=== PATIENT | male | born 1965 | race African-American/Black ===

== ENCOUNTER 2019-09-18 09:27 | Inpatient (IN) | payer BC ==
[~2019-09-18] VITALS: Ht 170.2 cm; Wt 81.6 kg
[2019-09-18 09:29] VITALS: BP 123/90
[2019-09-18] MEDS ORDERED: LOSARTAN POTAS100 MG PO (09:50)
[2019-09-18 10:52] LABS: ABSOLUTE NEUTROPHILS 5.8 thou/uL (1.4-8.2); BASOPHILS 0.2 % (0.0-2.0); EOSINOPHILS 0.1 % (0.0-3.0); HEMATOCRIT 38.6 % (42.0-52.0); HEMOGLOBIN 13.5 gm/dL (14.0-18.0); LYMPHOCYTES 8.5 % (24.0-44.0); MCH 30.2 pg (26.0-34.0); MCHC 34.8 g/dL (28.0-37.0); MCV 86.7 fL (80.0-100.0); MONOCYTES 10.1 % (1.0-8.0); PLATELET COUNT 365 thou/uL (150-400); POLYS 81.1 % (36.0-66.0); RBC 4.45 mil/uL (4.50-6.00); RDW 13.1 % (10.5-14.5); WBC 7.2 thou/uL (4.0-11.0)
[2019-09-18 11:05] LABS: URINE BILIRUBIN NEGATIVE (Negative); URINE BLOOD NEGATIVE (Negative); URINE CLARITY CLEAR; URINE COLOR YELLOW; URINE GLUCOSE-RANDOM* NEGATIVE (Negative); URINE KETONES NEGATIVE (Negative); URINE LEUKOCYTES-REFLEX NEGATIVE (Negative); URINE NITRITE-REFLEX NEGATIVE (Negative); URINE PROTEIN (DIPSTICK) 2+ (Negative); URINE SPECIFIC GRAVITY 1.015 (1.005-1.035); URINE UROBILINOGEN >= 8.0 E.U./dl (0.2-1.0)
[2019-09-18 11:12] LABS: ALBUMIN 3.4 g/dL (3.4-5.0); ANION GAP 9 mmol/L (7-16); BUN 18 mg/dL (7-18); CHLORIDE 102 mmol/L (98-107); CO2 27 mmol/L (21-32); CREATININE 1.2 mg/dL (0.7-1.3); GLUCOSE 132 mg/dL (74-106); MAGNESIUM 2.1 mg/dL (1.8-2.4); SGOT 42 U/L (15-37); SGPT 58 U/L (30-65); SODIUM 138 mmol/L (136-145); TOTAL BILIRUBIN 1.2 mg/dL (0.2-1.0); TOTAL PROTEIN 8.1 g/dL (6.4-8.2); TROPONIN-I <0.06 ng/mL (<0.06)
[2019-09-18 11:15] LABS: CALCIUM 12.3 mg/dL (8.5-10.1)
[2019-09-18 12:19] LABS: CASTS None Seen /LPF (None Seen); SQUAMOUS 0-3 Few /LPF (0-3); URINE RBC None Seen /HPF (0-2); URINE WBC-REFLEX 0-5 Rare /HPF (0-5)
[2019-09-18 12:20] LABS: BACTERIA-REFLEX None Seen /HPF (None Seen); CRYSTALS None Seen /LPF (None Seen)
--- NOTE | 2019-09-18 16:22 | EKG ---
[facility] [place] [address] ELECTROCARDIOGRAM REPORT Name: YUMIKO LYNN Room #: 170-15 ADM IN M.R.#: [id number] Admission: 09/18/19 Attend Phys: Betito Webb MD Discharge: Date of : 67 Report #: [id number] THIS REPORT FOR: cc: FAM - Family physician unknown FAM - Family physician unknown Terrell Delvalle MD [facility] THIS REPORT FOR: //name// [facility] ED Test Date: 2019-09-18 Test Time: 09:59:05 Pat Name: YUMIKO LYNN Department: Room: 170 Gender: M Acid Remover: CASSIE : 1965 Requested By: Gigi Lewis Order Number: [id number] MD: Terrell Delvalle Measurements Intervals [place] Rate: 112 P: 62 [place]: 162 QRS: 71 QRSD: 85 T: 20 QT: 315 QTc: 430 Interpretive Statements Sinus tachycardia ST elev, probable normal early repol pattern No previous ECG available for comparison Electronically Signed On 09-18-2019 16:21:50 CDT by Terrell Delvalle [email or web address] <ELECTRONICALLY SIGNED> By: Terrell Delvalle MD, FAC 09/18/19 1621 [id number] Terrell Delvalle MD, [facility] /EPI
[2019-09-18 16:36] LABS: CALCIUM 11.4 mg/dL (8.5-10.1); CREATININE 1.3 mg/dL (0.7-1.3); PHOSPHORUS 3.1 mg/dL (2.5-4.9)
[2019-09-18 18:45] VITALS: BP 117/84
[2019-09-18 18:47] VITALS: BP 127/88
--- NOTE | 2019-09-18 18:53 | NUR ---
ATTEMPTED TO CALL REPORT AND DAY SHIFT NURSE TOLD ME THAT SHE WONT BE TAKING REPORT ON PT SINCE AMBULANCE DRIVER NURSE WILL BE TAKING CARE OF HIM, AND THEY WILL "CALL ME BACK"
[2019-09-19 01:00] VITALS: BP 139/90
[2019-09-19 04:40] VITALS: BP 125/82
--- NOTE | 2019-09-19 05:01 | NUR ---
RECIEVED PT FROM ED UPON ARRIVAL TO [facility] PT DENIES CHEST PAIN OR SOA , DATA BASE AND ASSESSMENT COMPLETED, SWIM COACH PLACED ON PT SHOWS NSR. IV FLUIDS STARTED ORDERD. PT RESTED WELL THROUGHOUT HOURLY ROUNDS.
[2019-09-19 06:49] LABS: HEMATOCRIT 34.7 % (42.0-52.0); HEMOGLOBIN 11.7 gm/dL (14.0-18.0); MCH 29.6 pg (26.0-34.0); MCHC 33.6 g/dL (28.0-37.0); MCV 88.1 fL (80.0-100.0); RBC 3.94 mil/uL (4.50-6.00); RDW 12.9 % (10.5-14.5); WBC 5.2 thou/uL (4.0-11.0)
[2019-09-19 07:22] LABS: CALCIUM 10.8 mg/dL (8.5-10.1); CREATININE 1.1 mg/dL (0.7-1.3); POTASSIUM 4.9 mmol/L (3.5-5.1)
[2019-09-19 07:50] VITALS: BP 114/82
[2019-09-19 11:39] VITALS: BP 155/95
[2019-09-19 15:32] VITALS: BP 140/92
--- NOTE | 2019-09-19 17:20 | NUR ---
ASSUMED PATIENT CARE AT 0700. A/O X4. DENIES CHEST PAIN. PROGRESSING TOWARDS POC GOALS.
[2019-09-19 20:37] VITALS: BP 137/83
--- NOTE | 2019-09-20 01:05 | NUR ---
PT AMBULATING TO BATHROOM INDEPENDENTLY AND IS TOLERATING WELL. DENIES PAIN. RESTING COMFORTABLY. NO NEEDS VOICED. CALL LIGHT WITHIN REACH. FREQUENT OBSERVATION.
[2019-09-20 06:22] VITALS: BP 145/96
[2019-09-20 06:34] LABS: CALCIUM 10.6 mg/dL (8.5-10.1); CREATININE 0.9 mg/dL (0.7-1.3); POTASSIUM 3.9 mmol/L (3.5-5.1)
[2019-09-20 08:00] VITALS: BP 145/92
[2019-09-20 11:34] VITALS: BP 160/99
[2019-09-20 15:49] VITALS: BP 157/89
--- NOTE | 2019-09-20 16:59 | NUR ---
PT REMAINS LARGELY ASYMPTOMATIC HAVING TESTED POSITIVE FOR COVID. START NEW IV MEDICATION TO HELP REGULATE SERUM CALCIUM. PT TAKING IN GOOD PO. WILL CONTINUE TO ASSESS.
[2019-09-20 19:25] VITALS: BP 150/92
--- NOTE | 2019-09-21 00:52 | NUR ---
ASSESSED AT START OF SHIFT 1900. PT A&OX4 IV INTACT AND FLUIDS INFUSING. UP AD LEX TO THE BATHROOM. DENIES PAIN. COUGH SYRUP GIVEN TONIGHT. PT ANTICIPATING DC TOMORROW. CALCIUM ELEVATED MONITORING LAB VALUES. SR ON TELE WILL CONT TO MONITOR.
[2019-09-21 02:22] VITALS: BP 136/93
[2019-09-21 04:36] VITALS: BP 128/90
[2019-09-21 06:43] LABS: CALCIUM 10.2 mg/dL (8.5-10.1); CREATININE 1.1 mg/dL (0.7-1.3); POTASSIUM 4.6 mmol/L (3.5-5.1)
[2019-09-21 08:51] VITALS: BP 147/89
--- NOTE | 2019-09-21 10:49 | NUR ---
INITIAL ASSESSMENT/DISCHARGE NOTE: JUAN JOSE reviewed chart and spoke with nursing and attending physician. Pt was admitted from home due to chest pain and recent exposure to COVID-19. Pt placed in Enhanced Isolation. Pt's test on 09/17 is positive. Pt was diagnosed with COVID-19 about ten days prior to admission to [facility], at [facility]. Pt's mother also has COVID-19. Pt is afebrile, not requiring O2 and not in IV abx. Pt is medically stable to discharge home today following surgeon evaluation. JUAN JOSE spoke with pt via phone. Introduced role of SW. Pt appears to be alert/orientated x 4. Pt reports he lives at home with family. Prior to admission pt was independent with ADLs. No use of DME. Pt states he drove himself to the hospital and will drive home when discharged. JUAN JOSE updated pt's nurse. No SW needs identified at this time, but is available to assist should needs arise.
[2019-09-21] MEDS ORDERED: PROTONIX40 M1 PO (11:00)
[2019-09-21 11:32] VITALS: BP 147/89
--- NOTE | 2019-09-21 11:42 | NUR ---
ASSSUMED PATIENT CARE THIS SHIFT. PATIENT AWAKE ALERT ORIENTED, NO COMPLAINTS OF PAIN THIS MORNING. DENIES ANY CHEST PAIN. VSS. PATIENT SEEN BY HOSPITALIST AND NEW SURGERY CONSULT THIS AM. ORDERS FOR US OF THYROID/ NECK RECIEVED AND CALLED ULTRASOUND TO SEE IF IT CAN BE DONE WHILE INPATIENT WHEN PATIENT IS COVID POSITIVE. PATIENT AWAITING DISCHARGE. IV SALINE LOCK REMOVED AND SPRAY GUN SIZER REMOVED AND RETURNED TO STATION. PATIENT BELONGINGS TAKEN WITH HIM AT DISCHARGE, PATIENT DRIVING HOME IN PERSONAL VEHICLE. NO DISTRESS NOTED AT TIME OF DC.
--- NOTE | 2019-09-21 12:32 | NUR ---
US CALLED STATES UNABLE TO DO NECK US WHILE INPATIENT, MADE PATIENT AWARE AND SURGERY AWARE. WILL NEED TO BE COMPLETED AN OUTPATIENT
== END 2019-09-21 13:59 | disposition home or self-care (01) | DRG 177 ==
LOC: ER 09:27 → EROBS 12:20 → 3W 12:20
PROVIDERS: Emergency Medicine; ADMIT Hospitalist; ATTEND Hospitalist
DX: U07.1 COVID-19 (principal); A41.89 Other specified sepsis; E83.52 Hypercalcemia; I10 Essential (primary) hypertension; R07.9 Chest pain, unspecified; Z79.899 Other long term (current) drug therapy
CPT/HCPCS: 10879

== ENCOUNTER → 2019-10-14 | Outpatient (CLI) | payer BC ==
[~2019-10-14] MED LIST: LOSARTAN POTAS100 MG PO; PROTONIX40 M1 PO
== END ==
LOC: ULTRA 08:08
PROVIDERS: ATTEND Surgery
DX: E04.1 Nontoxic single thyroid nodule (principal); E21.0 Primary hyperparathyroidism

== ENCOUNTER → 2019-11-24 | Outpatient (CLI) | payer BC | LOC: NUC 07:23 | PROVIDERS: ATTEND Surgery | DX: E21.0 Primary hyperparathyroidism (principal) ==

== ENCOUNTER → 2020-03-07 | Outpatient (CLI) | payer BC | LOC: LAB 07:19 | PROVIDERS: ATTEND Surgery | DX: Z01.812 Encounter for preprocedural laboratory examination (principal); Z20.822 Contact with and (suspected) exposure to COVID-19 ==

== ENCOUNTER 2020-03-09 06:09 | Day surgery (SDC) | payer BC ==
[~2020-03-09] VITALS: Ht 170.2 cm; Wt 86.6 kg
[2020-03-09 07:10] VITALS: BP 177/113
[2020-03-09 07:10] LABS: HEMATOCRIT 40.1 % (42.0-52.0); HEMOGLOBIN 13.6 gm/dL (14.0-18.0); MCH 29.6 pg (26.0-34.0); MCHC 33.9 g/dL (28.0-37.0); MCV 87.3 fL (80.0-100.0); RBC 4.59 mil/uL (4.50-6.00); RDW 14.3 % (10.5-14.5); WBC 3.5 thou/uL (4.0-11.0)
[2020-03-09 07:13] LABS: CALCIUM 11.3 mg/dL (8.5-10.1); CREATININE 1.2 mg/dL (0.7-1.3); POTASSIUM 3.8 mmol/L (3.5-5.1)
[2020-03-09 17:00] VITALS: BP 155/99
--- NOTE | 2020-03-09 18:14 | NUR ---
ASSUMED PT CARE UPON TRANSFER AT 1700. PT IN BED RESTING WELL. LOW FALL RISK. SCD'S ARE ON. MEDICATED FOR PAIN FROM SURGICAL SITE. EDUCATED ON CALLING WHEN NEEDED. AGREES TO CALL.
[2020-03-09 19:53] VITALS: BP 162/105
[2020-03-10 02:15] LABS: ALBUMIN 3.7 g/dL (3.4-5.0); CALCIUM 10.4 mg/dL (8.5-10.1); CREATININE 1.3 mg/dL (0.7-1.3); MAGNESIUM 1.8 mg/dL (1.8-2.4); POTASSIUM 4.1 mmol/L (3.5-5.1)
--- NOTE | 2020-03-10 04:02 | NUR ---
VSS-AFEBRILE. NECK DRESSING DRY AND INTACT. PAIN WELL CONTROLLED WITH PO TYLENOL AND IBUPROFEN. OOB AD LEX-STEADY ON FEET. CALLS APPROPRIATELY FOR ANY NEEDED ASSISTANCE.
[2020-03-10] MEDS ORDERED: IBUPROFEN 200200 M1 PO (10:59)
[2020-03-10] MEDS ORDERED: OXYCODONE HCL 55 MG PO (10:59)
[2020-03-10] MEDS ORDERED: CALTRATE-600 W1 EACH PO (11:00)
[2020-03-10] MEDS ORDERED: ACETAMINOPHEN325 M1 PO (11:00)
[2020-03-10] MEDS ORDERED: COLACE 100 MG100 MG PO (11:00)
[2020-03-10] MEDS ORDERED: MIRALAX17 GM PO (11:01)
[2020-03-10 12:19] VITALS: BP 162/105
[2020-03-10 14:25] VITALS: BP 162/105
--- NOTE | 2020-03-10 14:26 | NUR ---
PATIENT LEFT UNIT AT APPROX 1426 WITH GIRLFRIEND IN CAR. NO NEEDS VOICED
== END 2020-03-10 14:45 | disposition home or self-care (01) ==
LOC: OR 06:09 → TBA 06:11 → OR 08:38 → 4W 16:47 → OR 03-10 14:45
PROVIDERS: ATTEND Surgery
DX: E21.3 Hyperparathyroidism, unspecified (principal); I10 Essential (primary) hypertension; Z98.890 Other specified postprocedural states; Z79.899 Other long term (current) drug therapy
CPT/HCPCS: 50010; 50101; 50386; 50417; 52190; 56524; 56526; 56760; 62110; 62900; 65020; 65040; 70005

== ENCOUNTER 2020-05-17 10:51 | Emergency (ER) | payer BC ==
[~2020-05-17] VITALS: Ht 170.2 cm; Wt 84.4 kg
[~2020-05-17 10:51] MED LIST changes: +ACETAMINOPHEN325 M1 PO; +CALTRATE-600 W1 EACH PO; +COLACE 100 MG100 MG PO; +IBUPROFEN 200200 M1 PO; +MIRALAX17 GM PO; +OXYCODONE HCL 55 MG PO
[2020-05-17 11:28] LABS: ABSOLUTE NEUTROPHILS 2.7 thou/uL (1.4-8.2); BASOPHILS 0.9 % (0.0-2.0); EOSINOPHILS 0.7 % (0.0-3.0); HEMATOCRIT 42.7 % (42.0-52.0); HEMOGLOBIN 14.4 gm/dL (14.0-18.0); LYMPHOCYTES 24.4 % (24.0-44.0); MCH 29.3 pg (26.0-34.0); MCHC 33.6 g/dL (28.0-37.0); MCV 87.1 fL (80.0-100.0); MONOCYTES 7.6 % (1.0-8.0); PLATELET COUNT 248 thou/uL (150-400); POLYS 66.4 % (36.0-66.0); RBC 4.91 mil/uL (4.50-6.00); RDW 13.4 % (10.5-14.5); WBC 4.1 thou/uL (4.0-11.0)
[2020-05-17 11:38] LABS: ANION GAP 10 mmol/L (7-16); BUN 12 mg/dL (7-18); CALCIUM 9.2 mg/dL (8.5-10.1); CHLORIDE 104 mmol/L (98-107); CO2 28 mmol/L (21-32); CREATININE 1.2 mg/dL (0.7-1.3); GLUCOSE 219 mg/dL (74-106); POTASSIUM 3.6 mmol/L (3.5-5.1); SODIUM 142 mmol/L (136-145)
[2020-05-17 11:48] LABS: ALBUMIN 4.3 g/dL (3.4-5.0); LIPASE 183 U/L (73-393); SGOT 24 U/L (15-37); SGPT 45 U/L (16-63); TOTAL BILIRUBIN 0.5 mg/dL (0.2-1.0); TOTAL PROTEIN 8.5 g/dL (6.4-8.2); TROPONIN-I <0.06 ng/mL (<0.06)
--- NOTE | 2020-05-17 12:08 | EKG ---
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 <ELECTRONICALLY SIGNED> By: Neto Castro MD, [facility] 05/17/20 1207 1056 1056 Neto Castro MD, [facility] /EPI
[2020-05-17] MEDS ORDERED: HYDROCHLOROTHIA25 M1 PO (13:49)
[2020-05-17 14:02] VITALS: BP 151/99
== END 2020-05-17 14:02 | disposition home or self-care (01) ==
LOC: ER 10:51
PROVIDERS: Emergency Medicine
DX: I10 Essential (primary) hypertension (principal); Z79.899 Other long term (current) drug therapy

== ENCOUNTER 2020-08-08 09:09 | Emergency (ER) | payer BC, OTHER ==
[~2020-08-08] VITALS: Ht 170.2 cm; Wt 84.8 kg
[~2020-08-08 09:09] MED LIST changes: +HYDROCHLOROTHIA25 M1 PO
[2020-08-08] MEDS ORDERED: CEPHALEXIN500 MG PO (10:12)
[2020-08-08 10:18] VITALS: BP 173/100
== END 2020-08-08 10:18 | disposition home or self-care (01) ==
LOC: ER 09:09
DX: S61.412A Laceration without foreign body of left hand, initial encounter (principal); I10 Essential (primary) hypertension; W26.0XXA Contact with knife, initial encounter; Y93.89 Activity, other specified; Y92.89 Other specified places as the place of occurrence of the external cause; Y99.0 Civilian activity done for income or pay

== ENCOUNTER 2020-11-24 15:45 | Inpatient (IN) | payer BC ==
[~2020-11-24] VITALS: Ht 170.2 cm; Wt 82.6 kg
[~2020-11-24 15:45] MED LIST changes: +CEPHALEXIN500 MG PO
[2020-11-24 16:02] VITALS: BP 153/103
[2020-11-24 16:38] LABS: BASOPHILS 0.4 % (0.0-2.0); HEMATOCRIT 41.8 % (42.0-52.0); HEMOGLOBIN 14.3 gm/dL (14.0-18.0); LYMPHOCYTES 5.3 % (24.0-44.0); MCHC 34.2 g/dL (28.0-37.0); MCV 84.9 fL (80.0-100.0); MONOCYTES 2.2 % (1.0-8.0); PLATELET COUNT 278 thou/uL (150-400); POLYS 92.1 % (36.0-66.0); RBC 4.92 mil/uL (4.50-6.00); RDW 14.1 % (10.5-14.5); WBC 8.7 thou/uL (4.0-11.0)
[2020-11-24 16:45] LABS: CALCIUM 9.3 mg/dL (8.5-10.1); CREATININE 1.1 mg/dL (0.7-1.3); POTASSIUM 3.6 mmol/L (3.5-5.1)
[2020-11-24] MEDS ORDERED: METFORMIN HCL500 M3 PO (16:55)
[2020-11-24] MEDS ORDERED: NORVASC10 MG PO (16:55)
[2020-11-24 20:11] VITALS: BP 120/74
[2020-11-24 20:20] VITALS: BP 107/70
[2020-11-24 21:00] VITALS: BP 119/77
--- NOTE | 2020-11-24 23:12 | NUR ---
PT ADMITTED FROM ER TO ROOM 462 AT 2049. PT ALERT AND ORIENTED X 4. IV INTACT TO LAC. REPORTS PAIN IN RLQ ABDOMEN RATING 3/10. DENIES NAUSEA. ADMISSION HISTORY AND ASSESSMENT COMPLETED. UNIT HANDBOOK GIVEN TO PT. PT ORIENTED TO ROOM AND USE OF CALL LIGHT. SCD'S APPLIED. PT APPEARS TO BE SLEEPING ON HOURLY ROUNDS.
[2020-11-25] VITALS (9 sets, daily range): BP systolic 119–149; BP diastolic 77–95
--- NOTE | 2020-11-25 14:31 | NUR ---
PT ADMITTED RELATED TO APPENDICITIS. PT HAD LAY APPENDECTOMY THIS DAY. CM REVIEWED CHART AND SPOKE WITH CARE TEAM. CM MET WITH PT AT BEDSIDE THIS DAY. PT APPEARED TO BE A&O X4. CM ROLE INTRODUCED. PT INDICATED HE LIVES IN A HOUSE WITH HIS SISTER DIEUDONNE WITH 14 STEPS TO ENTER AND 14 STEPS TO THE BASEMENT WHERE HE STAYS. 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 PT INDICATED HE HAD HH ON HIS NECK AND SHOULDER IN THE PAST BUT NOTHING RECENTLY. PT'S SISTER CALLED FOR CLINICAL UPDATE. IT IS ANTICPATED THAT PT WILL LIKELY BE MEDICALLY STABLE TO DC HOME TOMORROW TO SELF CARE. CM FOLLOWING REGARDING DC PLANNING.
--- NOTE | 2020-11-25 15:11 | NUR ---
ASSUMED CARE OF PT AT 0700. PT IS ALERT AND ORIENTED WITH NO COMPLAINTS OTHER THAN PAIN. WENT TO APPENDECTOMY PROCEDURE EARLY IN THE AM. ROUTINE PROCEDURE WITH NO ISSUES. 3 NEW LAP SITES. PAIN CONTROLLED THROUGH AFTERNOON WITH MEDICATION FROM PROCEDURE. IS BACK RESTING IN ROOM WITH FAMILY AT BEDSIDE NOW, VSS. WILL MONITOR PAIN CONTROL, ADMINISTER PROPHYLACTIC ANTIBIOTICS, AND ONE BAG OF FLUIDS POST PROCEDURE PER POC. UPDATED OTHER SISTER ON PHONE. WILL CONTINUE TO MONITOR.
--- NOTE | 2020-11-26 02:20 | NUR ---
Pt. rested quietly at short intervals during the night when checked on during frequent rounds. He c/o nausea and had a moderate amount of yellowish clear emesis. Dr. King called and notified with new order for zofran received. (see cpoe).
--- NOTE | 2020-11-26 05:43 | NUR ---
Pt. nausea has gotten a little better and has not had any further emesis. He was given morphine for abdominal pain (see emar) with some relief noted. His bp is elevated (see VS). Dr. Perez called and notified and new orders received to start home bp meds (see cpoe). Lapsites to abdomen are dry and intact. Voiding without difficulty.
[2020-11-26 08:13] VITALS: BP 171/106
--- NOTE | 2020-11-26 15:00 | NUR ---
PT ARRIVED TO FLOOR AROUND 0800. ASSESSED TO BE AN ELDERLY FEMALE, ALERT AND ORIENTEDX4, AMBULATES X1 WITH A WALKER. L KNEE SCAR WITH STERI STRIPS. RA, VITALS STABLE. MD CREWS SAW PT FOR A WHILE IMMEDIATELY AFTER ARRIVING TO RESTART HOME MEDS AND TALK TO PT. ORDERED KNEE US AND RIB XRAY D/T FALLS. BOTH COMPLETED. AMBULATES WELL WITH PT AND OT. AFTERWARDS, ALL ADMISSION CHECKLIST COMPLETED. FLUIDS INFUSING. PT IS ABLE TO EAT WELL AND EXPERIENCES PAIN THROUGHOUT THE ENTIRE LEFT LEG. WILL CONTINUE TO MONITOR, NO COMPLAINTS AT THIS TIME RESTING IN ROOM.
[2020-11-26 16:47] VITALS: BP 141/93
--- NOTE | 2020-11-26 18:52 | NUR ---
ASSUMED CARE OF PT AT 0700. PT CONTINUES TO BE LAERT AND ORIENTED, BUT THIS AM WAS NAUSEAUS AND RUNNING A HIGH BP. HAD ONE EPISODE OF VOMITTING AFTER RESTARTING AND TAKING HIS HOME CARDIAC MEDS. RN ASKED FOR IV CARDIAC PRN MEDICATION TO CONTROL BLOOD PRESSURE BUT IT REDUCED WITH PAIN MEDICATION. PT DESCRIBES PAIN A STRONG BURNING SENSATION INCREASED WHEN HE DRINKS. PT MADE NPO AND ENCOURAGED TO HAVE A BM, PAIN AND NAUSEA CONTROLLED WITH MEDS. PATIENT HAD A BM LATER IN AFTERNOON AND FOUND SOME RELIEF. RESTING IN ROOM QUIETLY WITH FAMILY NOW, WILL CONTINUE TO MONITOR.
[2020-11-26 20:52] VITALS: BP 142/99
[2020-11-27 07:47] VITALS: BP 147/100
--- NOTE | 2020-11-27 09:39 | NUR ---
ASSUMED CARE AT 1900, PT LAYING IN BED VOICES STOMACH DISCOMFORT, DECLINES PAIN MEDICATION, COMPLIANT TO CURRENT TX NO ADVERSE REACTION NOTED, SLEPT THROUGH THE NIGHT, WILL CONTINUE TO MONITOR.
[2020-11-27 16:32] VITALS: BP 144/89
--- NOTE | 2020-11-27 18:05 | NUR ---
Pt is A & O x4. Pt VS stable. Pt received medications as ordered. Pt received PRN pain and nausea medications. Pt is x 1 assist with ADLs and cares. Pt is able to make needs known.
[2020-11-27 19:33] VITALS: BP 144/100
[2020-11-27 20:10] VITALS: BP 132/86
--- NOTE | 2020-11-28 03:14 | NUR ---
ASSUMED CARE AT 1900, PT LAYING IN, GIRLFRIEND AT BED SIDE. PT REPORTS NO PAIN AT THIS TIME BUT STOMACH DISCOMFORT THAT GET RELIEVED AFTER MAKING BM. PT REMAINS TO BE ON CLEAR LIQUID RECOMMENDED BY THE SURGEON, NO ADVERSE REACTION NOTED FROM THE CUREENT TX, COMPLIANT TO CARE UTILIZES CALL LIGHT FOR ANY NEEDS. IV PATENT, ICED WATER ON THE BEDSIDE TABLE, PERSONAL ITEMS WITHIN REACH. WILL CONTINUE TO MONITOR.
[2020-11-28 09:39] VITALS: BP 157/106
[2020-11-28 11:34] VITALS: BP 155/98
[2020-11-28 16:39] VITALS: BP 142/100
[2020-11-28 16:43] VITALS: BP 142/100
--- NOTE | 2020-11-28 16:57 | NUR ---
Pt is progressing postop. No cm interventins indicated at this time. Dc home soon.
[2020-11-28 19:24] VITALS: BP 142/95
--- NOTE | 2020-11-29 05:31 | NUR ---
ASSUMED CARE OF PT AT SHIFT CHANGE. PT IS AOX4 AND LETS NEEDS BE KNOWN. PT IS UP AD LEX. ASSESSMENT CHARTED. 3X LAP SITES ARE C/D/I. PT REPORTED SOME ABD PAIN AND NAUSEA. NO VOMITING NOTED. PT REPORTS PASSING GAS; NO BM REPORTED. ASSESSSMENT CHARTED. PT WAS ABLE TO GET COMFORTABLE AND SLEEP PART OF THE SHIFT. VSS AND NO S/S OF ACUTE DISTRESS. WILL CONTINUE TO MONITOR.
[2020-11-29 05:47] LABS: CALCIUM 8.6 mg/dL (8.5-10.1); POTASSIUM 3.9 mmol/L (3.5-5.1)
[2020-11-29 08:00] VITALS: BP 136/96
--- NOTE | 2020-11-29 12:07 | PATH ---
[facility] [address] [address] PATHOLOGY RPT PROCEDURE Name: LEAHYUMIKO REED Room #: 462-P ADM IN M.R.#: [id number] Admission: 11/24/20 Date of : 67 Discharge: Report #: [id number] Path Case #: [id number] [facility] Accession Number: [id number] . 01 Material submitted: . appendix - APPENDIX . 01 Clinical history: . SJ LAPAROSCOPIC APPENDECTOMY APPENDICITIS PERFORATED APPENDIX . 02 Diagnosis: Appendix, appendectomy: - Acute suppurative appendicitis with complete necrosis of the appendiceal wall with serositis consistent with perforation. - Appendiceal tip with fibrous obliteration. - Negative for dysplasia or malignancy. ([facility]:lilian; 11/28/2020) MBR 11/28/2020 1638 Local . 02 Electronically signed: . Clement Langston DO, Pathologist NPI- [id number] . 01 Gross description: . Fixative: Formalin Labeled: Appendix Appendix length: 9.9 cm Appendix diameter: Ranging from 0.6-1.6 cm Mesoappendix: 6.1 x 1.9 x 1.6 cm Proximal margin: Stapled Serosa: Ruggiero-pink with areas that are roughened and covered in purulent exudate Cut surface: Ruggiero-white with a lumen filled with fecal matter Luminal diameter: Ranging 0.2-0.7 cm Perforation: Yes measuring 1.6 x 1.2 cm and is located 2.1 cm from the surgical resection margin Lesions/abnormalities: Described above A1 Proximal margin (inked black) and distal tip, bisected A2 Mid appendix including perforation ([facility]; 11/26/2020) GZA/GZA 11/28/2020 1637 Local . 02 Pathologist provided ICD-10: K35.20 . 02 CPT . [address] [address] PATHOLOGY RPT PROCEDURE Name: YUMIKO LYNN Room #: 462-P ADM IN .R.#: [id number] Admission: 11/24/20 Date of : 67 Discharge: Report #: [id number] Path Case #: [id number] Specimen Comment: A courtesy copy of this report has been sent to [phone] Specimen Comment: [id number] Specimen Comment: Report sent to / DR ANSARI Performed at: 01 [facility] [address] [id number] MD Itz Astudillo MD Phone: [phone] Performed at: 02 [facility] [address] [id number] MD Domingo Aguilar MD Phone: [phone]
--- NOTE | 2020-11-29 14:13 | NUR ---
TODAY THIS PT HAS HAD SOME NAUSEA IN WHICH HE WAS MEDICATED. HE HAS WALKED AROUND THE HALLS A FEW TIMES TODAY. HE HAS BEEN TOLERATING HIS MEDICATIONS WELL. HE HAS BEEN OTHERWISE AWAITING FOR THE NEXT PLAN.
[2020-11-29 16:01] VITALS: BP 142/98
[2020-11-29 19:43] VITALS: BP 152/102
--- NOTE | 2020-11-30 06:43 | NUR ---
ASSUEMD CARE OF PT AT SHIFT CHANGE. PT IS AOX4 AND LETS NEEDS BE KNOWN. PT IS UP AD LEX. ABX TREATMENT CONTINUED. PT DENIED PAIN, NAUSEA OR SOA. PT HAD A BM THIS SHIFT. LAP SITES ARE C/D/I. ABX TREATMENT CONTINUED. NO S/S OF ACUTE DISTRESS. WILL CONTINUE TO MONITOR.
[2020-11-30 07:14] VITALS: BP 132/92
[2020-11-30] MEDS ORDERED: AUGMENTIN 875-1 EACH PO (13:24)
[2020-11-30 14:57] VITALS: BP 132/92
--- NOTE | 2020-11-30 15:26 | NUR ---
Pt A & O x4. Pt VS stable. PT received medications as ordered. Pt is independent with cares and is up ad danilo. Pt is able to make needs known. Pt received discharge orders to home. P discharge instructions reviewed with pt and pt verbalized understanding and signed instructions. Pt is awaiting ride home.
--- NOTE | 2020-11-30 15:37 | NUR ---
PT TO DC HOME THIS DAY. PT TO DC HOME TO SELF CARE. NO OTHER CM INTERVENTION INDICATED. CASE CLOSED.
--- NOTE | 2020-11-30 15:44 | NUR ---
Pt ride arrived. Pt wheeled to front lobby in wheelchair by staff with personal belongings and left hopsital without incident in private vehicle.
--- NOTE | 2020-12-19 06:51 | O ---
[facility] [place] [address] OPERATIVE REPORT Name: YUMIKO LYNN Room #: 462-P [facility] IN M.R.#: [id number] Admission: 11/24/20 Attend Phys: Jonathon Perez, Discharge: 11/30/20 Date of : 67 Report #: [id number] THIS REPORT FOR: cc: Thiago Alonzo MD, Brian G. MD Patterson,Jonathon Brewster MD ~ DATE OF SERVICE: 11/25/2020 PREOPERATIVE DIAGNOSIS: Acute appendicitis. POSTOPERATIVE DIAGNOSIS: Acute perforated appendicitis. OPERATION: Laparoscopic appendectomy. SURGEON: Jonathon Perez MD ANESTHESIA: General. ESTIMATED BLOOD LOSS: Minimal. SPECIMENS: Appendix. DESCRIPTION OF PROCEDURE: After informed consent was obtained, the patient was brought to the operating room and placed supine. SCDs were placed and working, preoperative antibiotics were administered, general anesthesia was induced. The abdomen was prepped and draped in the usual sterile fashion. A 10 mm incision was made below the umbilicus. Fascia was incised and a trocar was placed. Pneumoperitoneum was established. Right upper quadrant and left lower quadrant 5 mm trocars were placed. The appendix was grasped and retracted anteriorly. It was noted to be perforated and a small fecalith was visible. The mesoappendix was ligated using the VLADIMIR carolina load stapler. There was good hemostasis. Base of the appendix was then stapled off with two fires of the VLADIMIR blue load stapler. There was good hemostasis. The appendix was placed into an Endopouch and removed. The fascia was then closed with a [id number] 0 Vicryl. Skin was closed with 4-0 Monocryl. Incisions were dressed with Steri-Strips. COMPLICATIONS: None. DISPOSITION: The patient was taken to recovery in satisfactory condition. <ELECTRONICALLY SIGNED> By: Jonathon Perez MD 12/19/20 0651 5 5 Jonathon Perez MD /helio
== END 2020-11-30 15:30 | disposition home or self-care (01) | DRG 339 ==
LOC: ER 15:45 → EROBS 19:56 → 4W 19:56
PROVIDERS: Student in an Organized Health Care Education/Training Program; ADMIT Surgery; ATTEND Surgery
PROC: 0DTJ4ZZ Resection of Appendix, Percutaneous Endoscopic Approach (ICD-10-PCS; principal; 2020-11-25)
DX: K35.32 Acute appendicitis with perforation, localized peritonitis, and gangrene, without abscess (principal); K56.7 Ileus, unspecified; R65.10 Systemic inflammatory response syndrome (SIRS) of non-infectious origin without acute organ dysfunction; I10 Essential (primary) hypertension; Z20.822 Contact with and (suspected) exposure to COVID-19; Z86.16 Personal history of COVID-19; Z79.899 Other long term (current) drug therapy; Z28.21 Immunization not carried out because of patient refusal
CPT/HCPCS: 10040; 50010; 50101; 50411; 50555; 50739; 50740; 51489; 52265; 52266; 53307; 53312; 53314; 56525; 58574; 58867; 62110; 62900; 70005